=== PATIENT | female | born 1965 | race Caucasian/White ===

== ENCOUNTER 2016-11-14 08:36 | Emergency (ER) | payer OTHER ==
[~2016-11-14] VITALS: Ht 162.6 cm; Wt 62.1 kg
[2016-11-14 11:01] VITALS: BP 114/76
== END 2016-11-14 11:01 | disposition home or self-care (01) ==
LOC: ED 08:36
DX: S61.512A Laceration without foreign body of left wrist, initial encounter (principal); W54.0XXA Bitten by dog, initial encounter; Y93.89 Activity, other specified; Y92.89 Other specified places as the place of occurrence of the external cause; Y99.8 Other external cause status
CPT/HCPCS: J2001; J3490